=== PATIENT | male | born 1970 | race Hispanic/Latino ===

== ENCOUNTER 2019-08-28 02:33 | Inpatient (IN) ==
--- NOTE | 2019-08-28 02:44 | PROVIDER DOCUMENTATION ---
HPI-Psychological Disorder - General Stated Complaint: PSYCH EVAL Time Seen by Provider: 08/28/19 02:44 Source: patient Departure - Departure Referrals and Follow-Ups: None,PCP [Primary Care Provider] -
[2019-08-28] MEDS ORDERED: LABETALOL IV ONE (03:05)
--- NOTE | 2019-08-28 03:09 | PROVIDER DOCUMENTATION ---
HPI-Cardiac General - General Chief Complaint: Shortness of Breath Stated Complaint: PSYCH EVAL Time Seen by Provider: 08/28/19 02:44 Source: patient Allergies/Adverse Reactions: Patient Allergies Allergy/AdvReac Type Severity Reaction Status Date / Time No Known Allergies Allergy Verified 08/28/19 03:50 - History of Present Illness-Cardiac Nature of Presenting Problem: Patient is a 49 year old male complaining of worsening shortness of breath with 3 pillow orthopnea for past 1 week. Denies fever, productive cough, chest pain Onset/Duration: 1 week ago Timing: still present Review of Systems - Adult - REVIEW OF SYSTEMS - ADULT Constitutional: denies: chills, fever Eyes: reports: no symptoms reported Ears, Nose, Mouth & Throat: reports: no symptoms reported Cardiovascular: reports: orthopnea (2-3 pillow). denies: chest pain Respiratory: reports: shortness of breath Gastrointestinal: reports: no symptoms reported Genitourinary: reports: no symptoms reported Musculoskeletal: reports: no symptoms reported Integumentary: reports: no symptoms reported Neurological: reports: see HPI, headache/migraines Psychiatric: reports: no symptoms reported Endocrine: reports: no symptoms reported Hematologic/Lymphatic: reports: no symptoms reported Allergic/Immunologic: reports: no symptoms reported All Other Systems: Reviewed and Negative Past History - Adult - PAST MEDICAL HISTORY-ADULT Review of Records: reports: Old Records Reviewed, Nursing Assessment Review, Medications Reviewed, Social history reviewed & non-contributory. Major Childhood Illnesses: reports: denies history Cardiovascular: reports: denies history Respiratory: reports: denies history Gastrointestinal: reports: denies history Genitourinary: reports: denies history Musculoskeletal: reports: denies history Neurological: reports: denies history Endocrine/Immune: reports: denies history Other Conditions: reports: denies history - PRIOR SURGERIES/PROCEDURES Surgical/Procedure History: reports: none - FAMILY HISTORY Family History: reviewed, not pertinent - SOCIAL HISTORY Smoking: denies Substance Use: denies Alcohol Use Frequency: every day Living Situation: family Physical Exam-General - PHYSICAL EXAM-ADULT Initial Vital Signs Reviewed: Yes - CONSTITUTIONAL General Appearance: alert, no apparent distress, obese, other (NONDIAPHORETIC) - EYES Eyes: other (CLEAR) - HEAD, EARS, NOSE, MOUTH & THROAT HENMT: normocephalic/atraumatic, moist mucous membranes - NECK Neck: non-tender, full range of motion - RESPIRATORY Respiratory: no accessory muscle use, decreased breath sounds - CARDIOVASCULAR Cardiovascular: regular rate, rhythm - GASTROINTESTINAL (ABDOMEN) Abdominal Exam: soft - MUSCULOSKELETAL Back Exam: no CVA tenderness Extremity: normal range of motion, non-tender - SKIN Integumentary: normal color, normal turgor - NEUROLOGIC Neurologic: grossly normal - PSYCHIATRIC Psych/Mental Status: normal mood/affect, anxious Progress - PLAN OF CARE/RESULTS Progress/Plan/Lab Results: Laboratory Results - last 24 hr 08/28/19 08/28/19 08/28/19 03:05 03:05 03:05 WBC 8.92 RBC 5.55 Hgb 16.6 Hct 51.3 MCV 92.4 MCH 29.9 MCHC 32.4 L RDW Std Deviation 12.9 Plt Count 221 MPV 11.6 H Immature Gran % (Auto) 0.4 Neut % (Auto) 64.4 Lymph % (Auto) 22.1 [place] % (Auto) 9.0 Eos % (Auto) 3.8 Baso % (Auto) 0.3 Immature Gran # (Auto) 0.04 Neut # (Auto) 5.74 Lymph # (Auto) 1.97 [place] # (Auto) 0.80 H Eos # (Auto) 0.34 Baso # (Auto) 0.03 D-Dimer, Quantitative Sodium Potassium Chloride Carbon Dioxide Anion Gap BUN Creatinine Estimated GFR/1.73 m2 BUN/Creatinine Ratio Glucose Calculated Osmolality Calcium Total Bilirubin AST ALT Alkaline Phosphatase Creatine Kinase 236 H Creatine Kinase Index 2.1 CK-MB (CK-2) 5.02 H Troponin T < 0.010 Kdk-R-Zqvkihzbdrt Pept Total Protein Albumin Globulin Albumin/Globulin Ratio Urine Source Urine Color Urine Clarity Urine pH Ur Specific [place] Urine Protein Urine Ketones Urine Blood Urine Nitrite Urine Bilirubin Urine Urobilinogen Urine Microscopic RBC Urine WBC Urine Microscopic WBC Ur Epithelial Cells Urine Bacteria Urine Glucose Urine Opiates Screen Ur Oxycodone Screen Urine Methadone Screen U Propoxyphene Qual Ur Barbituates Screen Ur Tricyclics Screen Ur Phencyclidine Scrn Ur Amphetamines Screen U Methamphetamines Scrn U Benzodiazepines Scrn Urine Cocaine Screen U Cannabinoids Screen 08/28/19 08/28/19 08/28/19 03:05 03:05 03:05 WBC RBC Hgb Hct MCV MCH MCHC RDW Std Deviation Plt Count MPV Immature Gran % (Auto) Neut % (Auto) Lymph % (Auto) [place] % (Auto) Eos % (Auto) Baso % (Auto) Immature Gran # (Auto) Neut # (Auto) Lymph # (Auto) [place] # (Auto) Eos # (Auto) Baso # (Auto) D-Dimer, Quantitative 0.30 Sodium 141 Potassium 3.8 Chloride 104 Carbon Dioxide 27 Anion Gap 10 BUN 18 Creatinine 1.0 Estimated GFR/1.73 m2 > 60 BUN/Creatinine Ratio 18 Glucose 124 H Calculated Osmolality 285 Calcium 9.6 Total Bilirubin 0.30 AST 24 ALT 32 Alkaline Phosphatase 100 Creatine Kinase Creatine Kinase Index CK-MB (CK-2) Troponin T [id number]-[id number] Pept 541 H Total Protein 7.6 Albumin 4.4 Globulin 3.0 Albumin/Globulin Ratio 1.0 Urine Source Urine Color Urine Clarity Urine pH Ur Specific [place] Urine Protein Urine Ketones Urine Blood Urine Nitrite Urine Bilirubin Urine Urobilinogen Urine Microscopic RBC Urine WBC Urine Microscopic WBC Ur Epithelial Cells Urine Bacteria Urine Glucose Urine Opiates Screen Ur Oxycodone Screen Urine Methadone Screen U Propoxyphene Qual Ur Barbituates Screen Ur Tricyclics Screen Ur Phencyclidine Scrn Ur Amphetamines Screen U Methamphetamines Scrn U Benzodiazepines Scrn Urine Cocaine Screen U Cannabinoids Screen 08/28/19 08/28/19 08/28/19 03:07 03:07 05:30 WBC RBC Hgb Hct MCV MCH MCHC RDW Std Deviation Plt Count MPV Immature Gran % (Auto) Neut % (Auto) Lymph % (Auto) [place] % (Auto) Eos % (Auto) Baso % (Auto) Immature Gran # (Auto) Neut # (Auto) Lymph # (Auto) [place] # (Auto) Eos # (Auto) Baso # (Auto) D-Dimer, Quantitative Sodium Potassium Chloride Carbon Dioxide Anion Gap BUN Creatinine Estimated GFR/1.73 m2 BUN/Creatinine Ratio Glucose Calculated Osmolality Calcium Total Bilirubin AST ALT Alkaline Phosphatase Creatine Kinase 179 Creatine Kinase Index CK-MB (CK-2) Troponin T Mcm-J-Leertlljnsu Pept Total Protein Albumin Globulin Albumin/Globulin Ratio Urine Source CLEAN CATCH Urine Color YELLOW Urine Clarity CLEAR Urine pH 5.0 Ur Specific [place] 1.020 Urine Protein 3+(500 mg/dL) A Urine Ketones NEGATIVE Urine Blood 1+ A Urine Nitrite NEGATIVE Urine Bilirubin NEGATIVE Urine Urobilinogen NORMAL Urine Microscopic RBC <10 Urine WBC NEGATIVE Urine Microscopic WBC <10 Ur Epithelial Cells <10 Urine Bacteria 1+ Urine Glucose NEGATIVE Urine Opiates Screen NONE DETECTED Ur Oxycodone Screen NONE DETECTED Urine Methadone Screen NONE DETECTED U Propoxyphene Qual NONE DETECTED Ur Barbituates Screen NONE DETECTED Ur Tricyclics Screen NONE DETECTED Ur Phencyclidine Scrn NONE DETECTED Ur Amphetamines Screen NONE DETECTED U Methamphetamines Scrn NONE DETECTED U Benzodiazepines Scrn NONE DETECTED Urine Cocaine Screen NONE DETECTED U Cannabinoids Screen NONE DETECTED 08/28/19 05:31 WBC RBC Hgb Hct MCV MCH MCHC RDW Std Deviation Plt Count MPV Immature Gran % (Auto) Neut % (Auto) Lymph % (Auto) [place] % (Auto) Eos % (Auto) Baso % (Auto) Immature Gran # (Auto) Neut # (Auto) Lymph # (Auto) [place] # (Auto) Eos # (Auto) Baso # (Auto) D-Dimer, Quantitative Sodium Potassium Chloride Carbon Dioxide Anion Gap BUN Creatinine Estimated GFR/1.73 m2 BUN/Creatinine Ratio Glucose Calculated Osmolality Calcium Total Bilirubin AST ALT Alkaline Phosphatase Creatine Kinase Creatine Kinase Index CK-MB (CK-2) Troponin T < 0.010 Amb-X-Ljhtbngbaoo Pept Total Protein Albumin Globulin Albumin/Globulin Ratio Urine Source Urine Color Urine Clarity Urine pH Ur Specific [place] Urine Protein Urine Ketones Urine Blood Urine Nitrite Urine Bilirubin Urine Urobilinogen Urine Microscopic RBC Urine WBC Urine Microscopic WBC Ur Epithelial Cells Urine Bacteria Urine Glucose Urine Opiates Screen Ur Oxycodone Screen Urine Methadone Screen U Propoxyphene Qual Ur Barbituates Screen Ur Tricyclics Screen Ur Phencyclidine Scrn Ur Amphetamines Screen U Methamphetamines Scrn U Benzodiazepines Scrn Urine Cocaine Screen U Cannabinoids Screen Orders Category Date Time Status Admit - [facility] Routine AdmDCTranf 08/28/19 05:13 Active Activity - Strict Bedrest ORDERED Care 08/28/19 05:13 Active Cardiac Monitoring DIRECTED Care 08/28/19 02:57 Completed Misc. NRSG Communication Order DIRECTED Care 08/28/19 03:08 Active Resuscitation Status Routine Care 08/28/19 05:13 Ordered Vital Signs Order Q 4-HR ASSESS Care 08/28/19 05:13 Active Z-Document. for Tele Applied ORDERED Care 08/28/19 05:15 Active CHEST-2 VIEWS [RAD] Stat Exams 08/28/19 02:58 Completed BNP [PRO B-NATRIURETIC PEPTIDE] Stat Lab 08/28/19 03:05 Completed CBC WITH ELECTRONIC DIFF [HEME] Stat Lab 08/28/19 03:05 Completed CK PROFILE [SP CHEM] Q4H Lab 08/28/19 05:30 Completed CK PROFILE [SP CHEM] Q4H Lab 08/28/19 09:22 Completed CK PROFILE [SP CHEM] Q4H Lab 08/28/19 13:25 Completed CK PROFILE [SP CHEM] Stat Lab 08/28/19 03:05 Completed COMPREHENSIVE METABOLIC PANEL [CHEM] Stat Lab 08/28/19 03:05 Completed D-DIMER [COAG] Stat Lab 08/28/19 03:05 Completed TROPONIN T Lab 08/28/19 05:31 Completed TROPONIN T Lab 08/28/19 09:22 Completed TROPONIN T Lab 08/28/19 13:25 Completed TROPONIN T Stat Lab 08/28/19 03:[address] W/POSS RFLX CULT [URINALYSIS] Stat Lab 08/28/19 03:07 Completed URINE DRUG SCREEN PL Stat Lab 08/28/19 03:07 Completed Aspirin Med 08/28/19 04:40 Discontinued 324 mg PO NOW ONE Dextrose 5%-Water Inj [D5w] 250 ml Med 08/28/19 04:45 Discontinued Nitroprusside [Nipride] 100 mg IV As Directed mls/hr Enalaprilat [Vasotec] Med 08/28/19 03:57 Discontinued 0.625 mg IV NOW ONE Furosemide [Lasix] Med 08/28/19 03:56 Discontinued 40 mg IV NOW ONE Furosemide [Lasix] Med 08/28/19 16:00 Discontinued 40 mg IV Q12H LISINOpril [Prinivil] Med 08/28/19 05:13 Discontinued 10 mg PO NOW ONE Labetalol Med 08/28/19 03:05 Discontinued 10 mg IV NOW ONE Nitroglycerin Med 08/28/19 03:43 Discontinued 1 inch TOP NOW ONE Ondansetron [Zofran] Med 08/28/19 04:32 Discontinued 4 mg IV NOW ONE Ondansetron [Zofran] Med 08/28/19 05:13 Discontinued 4 mg IV Q4H PRN PRN Oxygen Device Stat Oth 08/28/19 03:06 Completed Telemetry [OM.EQ] Routine Oth 08/28/19 05:13 Active EKG [EKG] Q4H Ther 08/28/19 05:30 Ordered EKG [EKG] Q4H Ther 08/28/19 09:30 Draft EKG [EKG] Q4H Ther 08/28/19 13:30 Draft EKG [EKG] Stat Ther 08/28/19 04:40 Draft EKG [EKG] Stat Ther 08/28/19 05:07 Draft EKG [EKG] Stat Ther 08/28/19 05:08 Draft Echo Spec/Color Doppler Stat Ther 08/28/19 05:15 Completed Transfer/Admit Order [TRANSFER] Routine Transfer 08/28/19 05:19 Completed Result Diagrams: 08/28/19 09:22 08/28/19 09:22 - EKG 1 Time of EKG reading by physician:: 03:03 EKG Read and Signed by:: Medhat Heath Rate: 91 Rhythm: NSR [place]: normal QRS: LVH WA Interval: normal Comments: no STEMI 2 Time of EKG reading by physician:: 04:41 EKG Read and Signed by:: Medhat Heath Rate: 65 Rhythm: NSR Irving: right ST Wave: non-specific ST changes Prior EKG Comparison: no prior EKG Comments: no STEMI - XRAY 1 XRAY Study: Chest XRAY Interpretation: cardiomegaly, diffuse prominent vascular markings - CONSULTS/PCP/HOSPITALIST Notification #1 *Consult/PCP/Hospitalist*: Dr. Darden, hospitalist Time Discussed: 05:00 Consult Disposition: Admit Departure - Departure Date of Disposition Decision: 08/28/19 Time of Disposition Decision: 04:53 DIAGNOSIS: Hypertensive crisis, unspecified CHF (congestive heart failure) Qualifiers: Heart failure type: unspecified Heart failure chronicity: acute Qualified Code(s): I50.9 - Heart failure, unspecified Disposition: ADMITTED INPATIENT 09 Certified Medical Emergency: Emergent Condition: Stable - Critical Care Note This patient required my direct & personal management of CC.: Yes Attestation - Physician/ SACHIN Attestation Patient care was provided by Advanced Practice Provider:: No The physician spent face to face time with patient:: Yes Advanced Practice Provider documentation review:: Supervising physician onsite and consulted in the evaluation and care of this patient. The physician did have a face to face encounter with the patient.
[2019-08-28 03:22] LABS: BASO# 0.03 X1000 (0.0-0.2); BASO% 0.3 % (0.0-0.8); EOS# 0.34 X1000 (0.0-0.7); EOS% 3.8 % (0.0-10.0); HEMATOCRIT 51.3 % (42.0-52.0); HEMOGLOBIN 16.6 g/dL (14.0-18.0); IMM GRAN# 0.04 X1000 (0.0-0.04); IMM GRAN% 0.4 % (0.0-0.5); LYMPH# 1.97 X1000 (1.2-3.4); LYMPH% 22.1 % (20.5-51.1); MCH 29.9 PG (27-31); MCHC 32.4 g/dL (33-37); MCV 92.4 FL (81-99); MPV 11.6 FL (7.4-10.4); NEUT# 5.74 X1000 (1.4-6.5); NEUT% 64.4 % (42.2-75.2); PLT 221 X1000 (130-400); RBC 5.55 XMIL (4.7-6.1); RDW 12.9 % (11.5-14.5); WBC 8.92 X1000 (4.8-10.8)
[2019-08-28 03:28] LABS: BILIRUBIN URINE NEGATIVE (NEGATIVE); BLOOD URINE 1+ (NEGATIVE); CLARITY CLEAR (CLEAR); COLOR YELLOW; GLUCOSE URINE NEGATIVE (NEGATIVE); KETONE URINE NEGATIVE (NEGATIVE); LEUKOCYTES URINE NEGATIVE (NEGATIVE); NITRITE URINE NEGATIVE (NEGATIVE); URINE EPITHELIAL CELLS <10 /HPF (<10); URINE RBC <10 /HPF (<10); URINE SOURCE CLEAN CATCH; URINE WBC <10 /HPF (<10); UROBILINOGEN URINE NORMAL
[2019-08-28 03:29] LABS: UR AMPHETAMINES QUAL NONE DETECTED (NONE DETECT); UR BARBITUATES QUAL NONE DETECTED (NONE DETECT); UR BENZODIAZEPIN QUAL NONE DETECTED (NONE DETECT); UR CANNABINOIDS QUAL NONE DETECTED (NONE DETECT); UR COCAINE QUAL NONE DETECTED (NONE DETECT); UR METHADONE QUAL NONE DETECTED (NONE DETECT); UR METHAMPHETAMINE QUAL NONE DETECTED (NONE DETECT); UR OPIATES QUAL NONE DETECTED (NONE DETECT); UR OXYCODONE QUAL NONE DETECTED (NONE DETECT); UR PCP QUAL NONE DETECTED (NONE DETECT); UR PROPOXYPHENE QUAL NONE DETECTED (NONE DETECT); UR TCA QUAL NONE DETECTED (NONE DETECT); URINE BACTERIA 1+ /HFP
[2019-08-28] MEDS ORDERED: NITROGLYCERIN TOP ONE (03:43)
[2019-08-28 03:45] LABS: AGAP 10; ALBUMIN 4.4 g/dL (3.5-5.0); ALKALINE PHOSPHATASE 100 U/L (32-122); BUN 18 mg/dL (8-22); CALCIUM 9.6 mg/dL (8.8-10.2); CHLORIDE 104 mmol/L (98-107); COSMO 285; ESTIMATED GFR > 60; GLUCOSE 124 mg/dL (70-104); GOT 24 U/L (10-34); GPT 32 U/L (10-44); POTASSIUM 3.8 mmol/L (3.5-5.1); SODIUM 141 mmol/L (136-145); TCO2 27 mmol/L (25-35); TOTAL PROTEIN 7.6 g/dL (6.3-8.3)
[2019-08-28] MEDS ORDERED: LASIX IV ONE (03:56)
[2019-08-28] MEDS ORDERED: VASOTEC IV ONE (03:57)
[2019-08-28] MEDS ORDERED: ZOFRAN IV ONE (04:32)
[2019-08-28] MEDS ORDERED: ASPIRIN PO ONE (04:40)
[2019-08-28] MEDS ORDERED: NIPRIDE 100 MG in D5W 250 ML IV SCH (04:45)
[2019-08-28 04:51] LABS: CK INDEX 2.1 (0.0-2.5); CK-MB 5.02 ng/mL (0.0-5.0)
--- NOTE | 2019-08-28 05:08 | EKG Report ---
Test Performed on : 08/28/2019 04:02:05 AM Test Reason : pain Blood Pressure : / mmHG Vent. Rate : 091 BPM Atrial Rate : 091 BPM P-R Int : 142 ms QRS Dur : 106 ms QT Int : 362 ms P-R-T Axes : 040 264 076 degrees QTc Int : 445 ms Normal sinus rhythm. Biatrial enlargement Right superior axis deviation Pulmonary disease pattern Abnormal ECG No previous ECGs available Unconfirmed Result
--- NOTE | 2019-08-28 05:10 | EKG Report ---
Test Performed on : 08/28/2019 05:31:50 AM Test Reason : bradycardia Blood Pressure : / mmHG Vent. Rate : 039 BPM Atrial Rate : 038 BPM P-R Int : 000 ms QRS Dur : 128 ms QT Int : 488 ms P-R-T Axes : 000 266 171 degrees QTc Int : 392 ms Idioventricular rhythm. Right superior axis deviation Nonspecific intraventricular block T wave abnormality, consider inferolateral ischemia Abnormal ECG When compared with ECG of 28-AUG-2019 04:02, (Unconfirmed) Idioventricular rhythm. has replaced Sinus rhythm. Vent. rate has decreased BY 52 BPM Unconfirmed Result
--- NOTE | 2019-08-28 05:11 | EKG Report ---
Test Performed on : 08/28/2019 05:40:26 AM Test Reason : rhythm change Blood Pressure : / mmHG Vent. Rate : 065 BPM Atrial Rate : 065 BPM P-R Int : 138 ms QRS Dur : 108 ms QT Int : 438 ms P-R-T Axes : 014 250 148 degrees QTc Int : 455 ms Normal sinus rhythm. Left atrial enlargement Right superior axis deviation T wave abnormality, consider lateral ischemia Abnormal ECG When compared with ECG of 28-AUG-2019 05:31, (Unconfirmed) Sinus rhythm. has replaced Idioventricular rhythm. Vent. rate has increased BY 26 BPM Unconfirmed Result
[2019-08-28] MEDS ORDERED: PRINIVIL PO ONE (05:13)
[2019-08-28] MEDS ORDERED: ZOFRAN IV PRN (05:13)
--- NOTE | 2019-08-28 06:21 | Diag Imaging Result Doc PS360 ---
EXAM: CHEST-2 VIEWS HISTORY: SOB TECHNIQUE: Only one view was obtained COMPARISON: None. FINDINGS: The lungs are well expanded. The heart is mildly enlarged. Increased interstitial markings bilaterally. No pleural effusions identified. No consolidation. IMPRESSION: Mild cardiomegaly with pulmonary edema versus pneumonia. Follow-up PA and lateral recommended. Electronically signed by Alverto Watson 08/28/2019 6:19 AM
[2019-08-28 09:44] LABS: HEMATOCRIT 47.2 % (42.0-52.0); HEMOGLOBIN 15.3 g/dL (14.0-18.0); MCH 30.1 PG (27-31); MCHC 32.4 g/dL (33-37); MCV 92.7 FL (81-99); MPV 11.8 FL (7.4-10.4); RBC 5.09 XMIL (4.7-6.1); WBC 9.76 X1000 (4.8-10.8)
[2019-08-28 10:31] LABS: AGAP 9; ALKALINE PHOSPHATASE 77 U/L (32-122); BUN 17 mg/dL (8-22); CALCIUM 9.5 mg/dL (8.8-10.2); CHLORIDE 103 mmol/L (98-107); COSMO 281; ESTIMATED GFR > 60; GLUCOSE 101 mg/dL (70-104); GOT 19 U/L (10-34); GPT 28 U/L (10-44); POTASSIUM 4.2 mmol/L (3.5-5.1); SODIUM 140 mmol/L (136-145); TCO2 28 mmol/L (25-35); TOTAL PROTEIN 6.8 g/dL (6.3-8.3)
[2019-08-28] MEDS ORDERED: FLU VACCINE IM ONE (10:52)
[2019-08-28] MEDS ORDERED: TYLENOL PO PRN (11:06)
[2019-08-28] MEDS ORDERED: PNEUMOVAX 23 IM ONE (11:15)
--- NOTE | 2019-08-28 11:19 | ECHO REPORT ---
ORDER DATE: 08/28/2019 INTERPRETING PHYSICIAN: Dr. Kendrick REQUESTING PHYSICIAN: CLINICAL INDICATIONS: This is a 49-year-old male with new onset CHF. M-MODE MEASUREMENTS: Right ventricle: cm. Left ventricle end diastole: 4.5 cm. Left ventricle end systole: 3.2 cm. Posterior wall: 1.5 cm. Interventricular septum: 1.5 cm. Left atrium: 4.5 cm. Aortic root: 2.9 cm. SUMMARY OF 2-DIMENSIONAL IMAGIN. The left ventricular function is mildly decreased. Ejection fraction is estimated at 51%. The impairment is global and mild.There is moderate degree of concentric LVH. 2. Aortic valve looks grossly normal. Color flow mapping is unremarkable. The patient appears to be in a slightly decreased output state. 3. The left atrium is enlarged moderately. 4. The right atrium is at the upper limits of normal. 5. Mitral valve shows mild degree of regurgitation. 6. Pulse wave Doppler of mitral inflow shows a pseudo normal pattern with a tall E wave and a short A wave. 7. The tissue Doppler of septal and lateral mitral annulus averages 4.5 cm. The E/E' prime ratio is elevated, estimated at 20. That indicates elevation of left atrial pressure. 8. The pulmonary venous flow is normal. 9. Tricuspid valve shows mild degree of regurgitation. 10.Pulmonary pressure is estimated at 21 to 26 mmHg. 11. Pulmonic valve is unremarkable. 13.There is no pericardial effusion, mass or thrombus. . This case is very consistent with chronic kidney disease/hypertensive heart disease. cc: Yared Kendrick MD MTDD
--- NOTE | 2019-08-28 11:37 | Diag Imaging Result Doc PS360 ---
EXAM: CHEST-2 VIEWS HISTORY: New onset CHF TECHNIQUE: PA and Lateral chest x-ray COMPARISON: 08/28/2019 FINDINGS: There is cardiomegaly. There is pulmonary vascular congestion and prominent interstitial markings decreased from previous AP exam. No pleural effusions are appreciated. No focal consolidation. IMPRESSION: Cardiomegaly. Decreasing vascular congestion and edema. Electronically signed by Karely Wakefield 08/28/2019 11:35 AM
--- NOTE | 2019-08-28 12:01 | HISTORY AND PHYSICAL ---
PRIMARY CARE PHYSICIAN: None. CHIEF COMPLAINT: Shortness of breath with 3 pillow orthopnea over the past week that has progressively worsened. HISTORY OF PRESENTING ILLNESS: This is a 49-year-old male who presents to [facility] ER with complaints of shortness of breath with 3 pillow orthopnea over the past week that has progressively worsened. Denied a productive cough, chest pain. Has no prior medical history. When he arrived, he had a blood pressure of 237/125. His proBNP was 541. Troponins were negative x2 sets. Urine drug screen was negative. Chest x-ray showed mild cardiomegaly with pulmonary edema versus pneumonia and a followup PA and lateral was recommended so he is being admitted for further evaluation and treatment. PAST MEDICAL HISTORY: None. PAST SURGICAL HISTORY: None. FAMILY HISTORY: Reviewed and noncontributory. SOCIAL HISTORY: Currently lives alone. Denies any tobacco, alcohol or illicit drug use. ALLERGIES: He has no known drug allergies. HOME MEDICATIONS: He does not take any medications on a routine basis. LABORATORY DATA: Showed a white blood cell count of 8.92, hemoglobin 16.6, hematocrit 51.3, platelets 221,000. D-dimer of 0.30. Sodium 140, potassium 3.8, chloride 104, CO2 27, BUN of 18, creatinine 1, glucose 124. Creatine kinase of 236, CK-MB of 5.02 with a negative troponin of less than 0.010. Creatine kinase repeated this morning was 179. Troponin again was negative at less than 0.010, proBNP of 541. Urinalysis was negative except for 1+ bacteria. Urine drug screen showed none detected. Chest x-ray showed mild cardiomegaly with pulmonary edema versus pneumonia. A followup PA and lateral was recommended. EKG showed normal sinus rhythm at 65. REVIEW OF SYSTEMS: He denied any fever, chills, blurred vision, dizziness, chest pain, coughing. He was short of breath with 3 pillow orthopnea, denied any abdominal pain, constipation, diarrhea, burning or hurting with urination. PHYSICAL EXAMINATION: VITAL SIGNS: On arrival he had a temperature of 97.9 degrees, pulse 87, respirations 19, blood pressure was 237/125 saturating 92% on room air. This morning, his blood pressure is down to 146/89 after receiving several antihypertensives in the emergency room. GENERAL: This is a 49-year-old male, lying in the bed, answers questions appropriately. HEENT: Normocephalic, atraumatic. Normal ENT inspection. Oropharynx and nares are clear. EYES: Pupils are equal, round, reactive to light and accommodation. Extraocular movements are intact. NECK: Normal inspection, normal range of motion. LUNGS: Clear to auscultation bilaterally with equal lung expansion and chest wall movement. HEART: Regular rate and rhythm. No murmurs, rubs, or gallops. ABDOMEN: Soft, nontender, nondistended. Bowel sounds are present x4 quadrants. MUSCULOSKELETAL: He has 5/5 strength x 4 extremities. NEUROLOGICAL: The cranial nerves 2-12 appear grossly intact. ASSESSMENT: 1. Hypertension uncontrolled. 2. New onset congestive heart failure. PLAN: He will be admitted to the medical unit, placed on telemetry O2 per protocol, healthy heart diet. We will finish out his serial cardiac enzymes. Place him on lisinopril 10 mg p.o. daily, Lasix 40 mg IV q.12 and recheck a 2-view chest x-ray today per the recommendations of the portable. Recheck a CMP in the a.m. Further orders after seen by attending. Dictated by VIC Wyman for Justin Darden MD cc: VIC Wyman MD
--- NOTE | 2019-08-28 12:06 | EKG Report ---
Test Performed on : 08/28/2019 10:29:24 AM Test Reason : pain Blood Pressure : / mmHG Vent. Rate : 074 BPM Atrial Rate : 074 BPM P-R Int : 138 ms QRS Dur : 108 ms QT Int : 406 ms P-R-T Axes : 021 263 085 degrees QTc Int : 450 ms Normal sinus rhythm. Left atrial enlargement Right superior axis deviation Nonspecific T wave abnormality Abnormal ECG When compared with ECG of 28-AUG-2019 05:40, (Unconfirmed) T wave inversion no longer evident in Lateral leads Unconfirmed Result
[2019-08-28] MEDS ORDERED: LASIX IV SCH (16:00)
--- NOTE | 2019-08-28 17:18 | EKG Report ---
Test Performed on : 08/28/2019 2:27:04 PM Test Reason : pain Blood Pressure : / mmHG Vent. Rate : 070 BPM Atrial Rate : 070 BPM P-R Int : 146 ms QRS Dur : 114 ms QT Int : 420 ms P-R-T Axes : 043 -85 132 degrees QTc Int : 453 ms Normal sinus rhythm. Biatrial enlargement Pulmonary disease pattern Left anterior fascicular block T wave abnormality, consider lateral ischemia Abnormal ECG When compared with ECG of 28-AUG-2019 10:29, (Unconfirmed) No significant change was found Unconfirmed Result
[2019-08-28] MEDS: LASIX IV SCH (17:52)
--- NOTE | 2019-08-29 03:39 | HISTORY AND PHYSICAL ---
ADDENDUM: The patient presented to the hospital with increased cough, congestion, and increased work of breathing. We are going to admit him to the hospital with congestive heart failure exacerbation, place him on telemetry, IV Lasix. We will continue to follow. Blood pressures were markedly elevated in the ER, does seem to be trending back down. Further orders as needed. cc: Justin Darden MD
[2019-08-29] MEDS: LASIX IV SCH (05:53)
[2019-08-29] MEDS ORDERED: PRINIVIL PO SCH (09:00)
[2019-08-29] MEDS ORDERED: APRESOLINE IV PRN (13:43)
[2019-08-29] MEDS ORDERED: CATAPRES PO ONE (13:51)
[2019-08-29 15:02] VITALS: BP 180/90
--- NOTE | 2019-08-30 11:51 | DISCHARGE SUMMARY ---
ADMISSION DATE: 08/28/2019 DISCHARGE DATE: 08/29/2019 PRIMARY CARE PHYSICIAN: None. ADMISSION DIAGNOSES: 1. Hypertension, uncontrolled. 2. New onset congestive heart failure. DISCHARGE DIAGNOSES: 1. Uncontrolled hypertension. 2. Mildly decreased left ventricular function with ejection fraction of 51%. SUMMARY OF FINDINGS: This is a 49-year-old, male who presented to the ER with complaints of shortness of breath with 3 pillow orthopnea over the past week that had progressively worsened. Denied a cough or chest pain. No prior medical history. When he arrived, his blood pressure was 237/125. ProBNP was mildly elevated at 541. Troponins were negative. Urine drug screen was negative. His chest x-ray showed mild cardiomegaly with pulmonary edema versus pneumonia. A followup PA and lateral was recommended. We did repeat that. It showed cardiomegaly, decreasing vascular congestion and edema. We did an echocardiogram that showed an ejection fraction of 51% with left ventricular function mildly decreased. The case was very consistent with chronic kidney disease and hypertensive heart disease per cardiology reading of the echocardiogram. Blood pressure has remained mildly elevated. Today, it got as high as 205/120. We gave him clonidine 0.2 mg p.o. x1. Blood pressure came down to 180/90. I certainly think this has been some uncontrolled hypertension for quite a while, more than probably a true congestive heart failure. It is now felt that he can be discharged home today. We gave him prescriptions for Norvasc 5 mg p.o. daily and Prinivil 20 mg p.o. daily. He will need to obtain a primary care physician and we can give him the physician referral line so that he can follow up. All discharge instructions have been reviewed with the patient and he verbalized understanding. TIME SPENT: This is a 35 minute discharge. Dictated by VIC Wyman for Boogie Bowden MD cc: VIC Wyman MD
== END 2019-08-29 16:05 | disposition home or self-care (01) | DRG 293 ==
LOC: P.ED 02:33 → P.MEDSURG 06:25 → SUATTDRO 06:25
PROVIDERS: ATTEND Internal Medicine